=== PATIENT | female | born 1990 | race Caucasian/White ===

== ENCOUNTER 2024-11-24 11:31 | Emergency (ER) | payer OTHER ==
[2024-11-24 11:40] VITALS: BP 142/95; PULSE 86; RESP 18; TEMP 98.8; BMI 29.5
[2024-11-24] MEDS ORDERED: ACETAMINOPHEN 500 MG TABLET (FP) ONE (12:26)
[2024-11-24] MEDS ORDERED: DIPHTH,PERTUSS(ACELL),TET 0.5 ML DISP.SYRIN IM ONE (12:27)
[2024-11-24] MEDS: ACETAMINOPHEN 500 MG TABLET (FP) PO ONE (12:35)
[2024-11-24] MEDS: DIPHTH,PERTUSS(ACELL),TET 0.5 ML DISP.SYRIN IM ONE (12:35)
== END 2024-11-24 15:10 | disposition home or self-care (01) ==
LOC: JERFT 11:31
PROC: 3E0234Z Introduction of Serum, Toxoid and Vaccine into Muscle, Percutaneous Approach (ICD-10-PCS; principal; 2024-11-24)
DX: S02.5XXB Fracture of tooth (traumatic), initial encounter for open fracture (principal); S00.511A Abrasion of lip, initial encounter; S80.211A Abrasion, right knee, initial encounter; S80.212A Abrasion, left knee, initial encounter; Z23 Encounter for immunization; W17.81XA Fall down embankment (hill), initial encounter
CPT/HCPCS: 70486-TC; 90715; 99285-25